=== PATIENT | female | born 1995 | race Caucasian/White ===

== ENCOUNTER 2016-07-20 02:45 | Emergency (ER) | payer OTHER ==
[~2016-07-20] VITALS: Ht 157.5 cm; Wt 72.3 kg
[2016-07-20 02:49] VITALS: TEMP 36.3; Ht 157.5 cm; Wt 72.3 kg
[2016-07-20 02:53] VITALS: O2SAT 97
[2016-07-20] MEDS ORDERED: ONDANSETRON INJ 2 MG/ML 2 ML VIAL IM STA (03:04)
--- NOTE | 2016-07-20 03:07 | EMERGENCY ROOM VISIT NOTE ---
History Report prepared by Dalton: Kian Guerra Under the Supervision of: Dr. Brandy Cruz D.O. First contact with patient: 02:54 Chief Complaint: ALCOHOL OVERDOSE Stated Complaint: ALCOHOL OVERDOSE Nursing Triage Summary: room mates called EMS for patient due to pt vomiting in apartment. pt was celebrating her 21st birthday and was attempting to take 21 shots. patient has written tally rhoades on wrist for the number of shots. patient took approximately 18 shots. patient states she does not know what kind of shots. History of Present Illness The patient is a 21 year old female who presents to the Emergency Room with complaints of an alcohol overdose occurring prior to arrival. The patient's friends state that she was trying to take 21 shots of liquor. The patient's friends state that she was vomiting up brown liquid prior to arrival. The patient denies any other medical issues. The history is limited due to alcohol intoxication. Source of History: patient, friend History Limited By: intoxication Onset: prior to arrival Position: other (global) Quality: other (alcohol intoxication) Associated Symptoms: + vomiting Review of Systems HPI is limited due to alcohol intoxication Past Medical & Surgical Limited due to alcohol intoxication Family History Limited due to alcohol intoxication Social History Smoking Status: Never Smoker Alcohol Use: occasionally Housing Status: lives with roommate Occupation Status: [employer] Current/Historical Medications Scheduled Escitalopram (Lexapro), 10 MG PO DAILY Scheduled PRN Diphenhydramine Hcl (Allergy Relief), MG PO DIRECTED PRN for allergies Allergies Coded Allergies: No Known Allergies (Unverified , 07/20/16) Physical Exam Vital Signs Date Time Temp Pulse Resp B/P Pulse Ox O2 Delivery O2 Flow Rate FiO2 07/20/16 06:32 77 07/20/16 06:18 78 15 93 07/20/16 05:58 90/53 07/20/16 05:48 80 15 97 07/20/16 05:28 99/53 07/20/16 05:18 73 14 96 07/20/16 05:13 73 16 96 07/20/16 04:58 96/51 07/20/16 04:43 73 15 93 07/20/16 04:38 75 21 99 07/20/16 04:28 98/59 07/20/16 04:08 74 14 95 07/20/16 04:03 73 16 95 07/20/16 03:58 96/47 07/20/16 03:33 77 14 07/20/16 03:28 101/61 07/20/16 03:15 83 96 07/20/16 02:58 126/63 07/20/16 02:54 84 07/20/16 02:53 97 Room Air 07/20/16 02:49 36.3 78 18 111/74 96 Room Air 07/20/16 02:48 111/74 Physical Exam General: Smells of alcohol. She is confused. Inappropriately answering questions. HEENT: Head - normocephalic and atraumatic Pupils are 2mm and sluggish and slowly react to light. Extraocular eye muscles are intact, and sclera are anicteric. Nose - moist nasal mucosa without discharge. Mouth - moist buccal mucosa. Oropharynx is nonerythematous and there is no tonsillar exudate or edema noted. Neck: Supple; no JVD, nuchal rigidity, cervical lymphadenopathy. Heart: Regular rate and rhythm. There is a normal S1 and S2 with no murmurs, clicks, or gallops appreciated. Lungs: Clear to auscultation bilaterally with no wheezes, rales, or rhonchi. Abdomen: Soft, completely nontender, nondistended, with good bowel sounds. There are no palpable pulsatile masses or hepatosplenomegaly. There is no guarding, rigidity, or rebound noted. Extremities: No evidence of cyanosis, clubbing, or edema. There are easily palpable peripheral pulses. Skin: warm and dry with good turgor and no rashes. Medical Decision & Procedures Laboratory Results 07/20/16 03:15 Test 07/20/16 03:15 Anion Gap 10.0 mmol/L (3-11) Est Creatinine Clear Calc Drug Dose 92.1 ml/min Estimated GFR () 105.9 Estimated GFR (Non- 91.4 BUN/Creatinine Ratio 8.8 (10-20) Calcium Level 8.6 mg/dl (8.5-10.1) Ethyl Alcohol mg/dL 271.0 mg/dl (0-3) Laboratory results per my review. Medications Administered Medications (Trade) Dose Ordered Sig/Franck Route Start Time Stop Time Status Last Admin Dose Admin Ondansetron HCl (Zofran Inj) 4 mg NOW STAT IM 07/20/16 03:04 07/20/16 03:05 DC 07/20/16 03:08 4 MG Procedure Zofran IM ED Course 0254: Past medical records reviewed. The patient was evaluated in room B11. A complete history and physical exam was performed. The patient was placed in the prone position to avoid aspiration. She was observed on the cardiac cath tech and pulse oximeter. 0304: Zofran Inj 4mg IM 0416: I reevaluated the patient, and she was sleeping and hemodynamically stable. 0546: I reevaluated the patient, and she easily awakens, and she is alert and oriented, and she is is hemodynamically stable. The patient will be discharged when clinically sober. 0640: I had a discussion with the patient about the hazards of such excessive alcohol use. She denies any trauma. She will be discharged with her roommates around 8 AM. Medical Decision The patient is a 21 year old female who presents to the ED with alcohol intoxication. Differential diagnosis includes alcohol overdose, drug intoxication, hypoglycemia, and head injury. Alcohol 271, sodium 147, normal potassium, glucose 120 This is a 21-year-old female patient who was drinking shots for her 21st birthday. The patient became significantly disoriented and started vomiting around stuff. Her roommates were concerned about her and felt they could not care for her at home. The patient was vomiting upon her arrival here in the emergency room. She was given IM Zofran and has been resting comfortably throughout the night. She has remained hemodynamically stable. I've suggested that the patient avoid drinking such excessive alcohol again in the future. Impression Primary Impression: Alcohol overdose Scribe Attestation The scribe's documentation has been prepared under my direction and personally reviewed by me in its entirety. I confirm that the note above accurately reflects all work, treatment, procedures, and medical decision making performed by me. Departure Information Dispostion Home / Self-Care Referrals No Doctor, Assigned (PCP) Forms HOME CARE DOCUMENTATION FORM, IMPORTANT VISIT INFORMATION Patient Instructions ED Overdose Alcohol, My [facility] Additional Instructions Avoid such excessive alcohol use in the future. Rest. Take plenty of clear liquids today. Use tylenol for headaches
[2016-07-20] MEDS ORDERED: DIPH25TA2 PO (03:31)
[2016-07-20] MEDS ORDERED: ESCI10TA17 PO (03:32)
[2016-07-20 03:44] LABS: BUN/CREATININE RATIO 8.8 (10-20); CALCIUM 8.6 mg/dl (8.5-10.1); CREATININE 0.9 mg/dl (0.60-1.20); POTASSIUM 3.8 mmol/L (3.5-5.1)
[2016-07-20 06:53] VITALS: O2SAT 92
[2016-07-20 07:43] VITALS: BP 121/66; PULSE 102
== END 2016-07-20 08:11 | disposition home or self-care (01) ==
LOC: EDBD 02:45 → C.EDB 02:50
DX: T51.0X1A Toxic effect of ethanol, accidental (unintentional), initial encounter (principal)